=== PATIENT | male | born 1985 | race Two or more races ===

== ENCOUNTER 2021-11-12 16:14 | Emergency (ER) | payer MEDICAID ==
[~2021-11-12] VITALS: Ht 170.2 cm; Wt 95.3 kg
[2021-11-12] MEDS ORDERED: ONDANSETRON ODT 4 MG TAB.RAPDIS ONE (16:44)
[2021-11-12] MEDS ORDERED: HYDROCODONE/APAP 10-325 MG TABLET ONE (16:44)
[2021-11-12] MEDS ORDERED: HYDROCODONE/APAP 10-325 MG TABLET PO ONE (16:45)
[2021-11-12] MEDS ORDERED: ONDANSETRON ODT 4 MG TAB.RAPDIS SL ONE (16:45)
--- NOTE | 2021-11-12 18:00 | NUR ---
Patient discharged to home in stable condition. Verbal after care instructions given by Dr Noguiera. Patient verbalizes understanding of instructions. Stressed follow up or return to ER for worsening s/s.
[2021-11-12 18:03] VITALS: BP 120/76
== END 2021-11-12 18:04 | disposition home or self-care (01) ==
LOC: EDBD 16:16 → ER 16:16
DX: R10.9 Unspecified abdominal pain (principal); S39.91XA Unspecified injury of abdomen, initial encounter; V28.0XXA Motorcycle driver injured in noncollision transport accident in nontraffic accident, initial encounter; Y92.89 Other specified places as the place of occurrence of the external cause; J45.909 Unspecified asthma, uncomplicated; S22.32XA Fracture of one rib, left side, initial encounter for closed fracture; X58.XXXA Exposure to other specified factors, initial encounter; Z88.6 Allergy status to analgesic agent; Z91.041 Radiographic dye allergy status; M79.672 Pain in left foot
CPT/HCPCS: 71250; 73610; 73630; A4663; Q0162